=== PATIENT | female | born 1960 | race Caucasian/White ===

== ENCOUNTER → 2017-06-23 | Outpatient (CLI) | payer OTHER ==
[~2017-06-23] MED LIST: ASPI-1471 PO; ATEN-1 PO; CALC600T63 PO; CHOL400T29 PO; GLUC100026 PO; IBUP-1671 PO; METH5TAB87 PO; MULT1TAB64 PO; OMEG-55 PO; SIMV-54 PO
== END ==
LOC: LAB 09:27
PROVIDERS: ATTEND Internal Medicine Endocrinology, Diabetes & Metabolism
DX: E05.00 Thyrotoxicosis with diffuse goiter without thyrotoxic crisis or storm (principal)
CPT/HCPCS: 36415; 84439; 84443; 84481

== ENCOUNTER → 2017-06-23 | Outpatient (REF) ==
[2017-06-23 10:16] LABS: LDL CHOLESTEROL 137 mg/dl
== END ==
DX: Z02.9 Encounter for administrative examinations, unspecified (principal)

== ENCOUNTER → 2017-07-14 | Outpatient (CLI) | payer OTHER ==
[~2017-07-14] MED LIST changes: +ATEN-65 PO; +GOLYTE PO; +HYDR12.556 PO; +ROSU20TA13 PO
== END ==
LOC: LAB 16:07
PROVIDERS: ATTEND Emergency Medicine
DX: E05.00 Thyrotoxicosis with diffuse goiter without thyrotoxic crisis or storm (principal)
CPT/HCPCS: 36415; 84445

== ENCOUNTER → 2017-08-11 | Outpatient (CLI) | payer OTHER ==
[~2017-08-11] MED LIST changes: +ROSU40TA10 PO; +SELE200T32 PO
== END ==
LOC: LAB 09:04
PROVIDERS: ATTEND Emergency Medicine
DX: E78.5 Hyperlipidemia, unspecified (principal)
CPT/HCPCS: 36415; 82465; 83718; 84478

== ENCOUNTER 2017-08-18 00:22 | Day surgery (SDC) | payer OTHER ==
[2017-08-18] VITALS (7 sets, daily range): BP systolic 85–136; BP diastolic 47–73
[~2017-08-18] VITALS: Ht 167.6 cm; Wt 58.5 kg
[2017-08-18] MEDS ORDERED: LIDOCAINE/SOD BICARB 8.4% SYR ID ONE (07:00)
[2017-08-18] MEDS ORDERED: MIDAZOLAM 2 MG/2 ML VIAL IVP ONE (07:00)
[2017-08-18] MEDS ORDERED: NORMOSOL R SOLN(*) 1000 ML BAG 1,000 ML IV PRN (07:00)
[2017-08-18] MEDS ORDERED: PROPOFOL EMUL(*) 10MG/ML 20 ML 40 ML ONE (07:53)
--- NOTE | 2017-08-18 08:59 | Short(Outpt) Discharge Summary ---
Discharge Summary Reason for Hosp/Final Diag: (1) Colon cancer screening Status: Chronic Hospital Course & Plan: Colonoscopy completed without any problems. Departure Discharge to: Home, Self Care Discharge Instructions Home Meds Active Scripts Rosuvastatin Calcium (Rosuvastatin Calcium) 40 Mg Tablet, 1 TAB PO DAILY, #90 TAB 3 Refills Prov:WANDA CRAIG MD 08/17/17 Peg/Electrolytes (GOLYTELY SOLUTION) 4,000 Ml Soln, 1 GAL PO ONCE, #1 GAL 0 Refills Prov:DELONTE NOVAK MD 07/14/17 Hydrochlorothiazide (HYDROCHLOROTHIAZIDE) 12.5 Mg Capsule, 1 TAB PO DAILY, #90 CAPSULE 3 Refills Prov:WANDA CRAIG MD 07/01/17 Atenolol (ATENOLOL) 25 Mg Tablet, 1 TAB PO QDAY, #90 TAB 3 Refills Prov:WANDA CRAIG MD 07/01/17 Reported Medications Selenomethionine (SELENIUM) 200 Mcg Tablet, 200 MCG PO QDAY 08/12/17 Methimazole (METHIMAZOLE) 5 Mg Tablet, 5 MG PO DAILY 07/01/17 Ibuprofen (MOTRIN IB) 200 Mg Tablet, 1-2 TAB PO Q6-8H Y for PAIN 05/22/16 Glucosamine Sulfate 2KCL (GLUCOSAMINE) 1,000 Mg Tablet, 1 TAB PO 3XW 05/22/16 [place]-3S/Dha/Epa/Fish Oil (Fish Oil EC 1,200 mg Softgel) 1 Each Capsule.dr, 1 CAP PO 3XW 05/22/16 Cholecalciferol (Vitamin D3) (VITAMIN D3) 400 Unit Tablet, 2 TAB PO DAILY 05/22/16 Calcium Carbonate (CALCIUM) 600 Mg Tablet, 1 TAB PO DAILY 05/22/16 Discontinued Scripts Rosuvastatin Calcium (Rosuvastatin Calcium) 20 Mg Tablet, 1 TAB PO DAILY, #90 TAB 3 Refills Prov:WANDA CRAIG MD 07/01/17 Diet: Regular Activity: As Tolerated Special Instructions: Your colonoscopy was completed without any problems and your prep was excellent (Good Job!!). I didn't find any polyps, cancers, inflammation, or any other abnormalities. It was completely normal!! I recommend that you have another colonoscopy in 10 years. DELONTE NOVAK MD Aug 18, 2017 08:59
== END 2017-08-18 09:46 | disposition home or self-care (01) ==
LOC: OR 00:22
PROVIDERS: ATTEND Surgery
DX: Z12.11 Encounter for screening for malignant neoplasm of colon (principal)
CPT/HCPCS: 00812; 45378; J2704

== ENCOUNTER → 2017-09-14 | Outpatient (CLI) | payer OTHER | LOC: LAB 08:46 | PROVIDERS: ATTEND Emergency Medicine | DX: E78.5 Hyperlipidemia, unspecified (principal); E05.90 Thyrotoxicosis, unspecified without thyrotoxic crisis or storm | CPT/HCPCS: 36415; 82306; 82465; 83718; 84478 ==

== ENCOUNTER → 2017-09-14 | Outpatient (CLI) | payer OTHER | LOC: LAB 08:47 | PROVIDERS: ATTEND Internal Medicine Endocrinology, Diabetes & Metabolism | DX: E05.00 Thyrotoxicosis with diffuse goiter without thyrotoxic crisis or storm (principal); I51.2 Rupture of papillary muscle, not elsewhere classified | CPT/HCPCS: 82310; 82374; 82435; 82565; 82947; 83519; 84132; 84295; 84439; 84443; 84481; 84520 ==

== ENCOUNTER → 2017-11-02 | Outpatient (CLI) | payer OTHER | LOC: LAB 10:19 | PROVIDERS: ATTEND Internal Medicine Endocrinology, Diabetes & Metabolism | DX: E05.00 Thyrotoxicosis with diffuse goiter without thyrotoxic crisis or storm (principal) | CPT/HCPCS: 36415; 84439; 84443; 84481 ==

== ENCOUNTER → 2017-12-19 | Outpatient (CLI) | payer OTHER | LOC: LAB 10:41 | PROVIDERS: ATTEND Ophthalmology | DX: H02.536 Eyelid retraction left eye, unspecified eyelid (principal) | CPT/HCPCS: 36415; 84445 ==

== ENCOUNTER → 2018-01-25 | Outpatient (CLI) | payer OTHER ==
[~2018-01-25] MED LIST changes: -ROSU20TA13 PO; +ROSU20TA5 PO; -ROSU40TA10 PO; +ROSU40TA2 PO
== END ==
LOC: LAB 09:03
PROVIDERS: ATTEND Internal Medicine Endocrinology, Diabetes & Metabolism
DX: E05.00 Thyrotoxicosis with diffuse goiter without thyrotoxic crisis or storm (principal)
CPT/HCPCS: 36415; 84439; 84443; 84481

== ENCOUNTER → 2018-01-25 | Outpatient (CLI) | payer OTHER | LOC: LAB 09:42 | PROVIDERS: ATTEND Emergency Medicine | DX: E05.90 Thyrotoxicosis, unspecified without thyrotoxic crisis or storm (principal) | CPT/HCPCS: 82306 ==

== ENCOUNTER → 2018-02-10 | Outpatient (CLI) | payer OTHER | LOC: LAB 11:43 | PROVIDERS: ATTEND Internal Medicine Endocrinology, Diabetes & Metabolism | DX: E05.00 Thyrotoxicosis with diffuse goiter without thyrotoxic crisis or storm (principal) | CPT/HCPCS: 36415; 83519 ==

== ENCOUNTER 2018-02-28 01:16 | Outpatient (RCR) | payer OTHER ==
--- NOTE | 2018-03-01 09:25 | RADIOLOGY IMAGING REPORT ---
FACILITY: [facility] PATIENT NAME: Gema Garduno : 1960 MR: [id number] V: [id number] EXAM DATE: ORDERING PHYSICIAN: DORIS SALTER TECHNOLOGIST: Location: [facility] [place] Patient: Gema Garduno : 1960 Visit/Account:[id number] Date of Sevice: 02/28/2018 THYROID UPTAKE MUTILPLE HISTORY: Graves' disease TECHNIQUE: 368 microcuries I-123 were administered orally. Radioiodine uptake values were calculated at 24 hours following tracer administration. Gamma camera images were obtained of the neck in variou s orientations. COMPARISON: June 29, 2016 FINDINGS: Thyroid radioiodine uptake at 24 hours is 43.3% (normal range 15-40 %). Thyroid radioiodine uptake at six hours is 27.4% (normal range 5-15%) Size and shape: Normal. Homogeneity: Normal. Nodules: None evident. IMPRESSION: Abnormally high 24 hour thyroid uptake of 43.3% Abnormally high six hour thyroid uptake of 27.4% Report Dictated By: Sarah Light MD at 03/01/2018 9:18 AM Report E-Signed By: Sarah Light MD at 03/01/2018 9:21 AM WSN:[email or web address]
== END 2018-02-28 18:00 | disposition home or self-care (01) ==
LOC: NUC 01:16 → EDSTATUS 15:10 → NUC 18:00
PROVIDERS: ATTEND Internal Medicine Endocrinology, Diabetes & Metabolism
DX: E05.00 Thyrotoxicosis with diffuse goiter without thyrotoxic crisis or storm (principal)
CPT/HCPCS: 78012; A9516

== ENCOUNTER → 2018-04-01 | Outpatient (CLI) | payer OTHER | LOC: LAB 09:34 | PROVIDERS: ATTEND Internal Medicine Endocrinology, Diabetes & Metabolism | DX: E05.00 Thyrotoxicosis with diffuse goiter without thyrotoxic crisis or storm (principal) | CPT/HCPCS: 36415; 84439; 84443; 84481 ==

== ENCOUNTER → 2018-04-26 | Outpatient (CLI) | payer OTHER ==
--- NOTE | 2018-04-26 12:21 | RADIOLOGY IMAGING REPORT ---
FACILITY: [facility] PATIENT NAME: NIK WASHINGTON : [id number] MR: [id number] V: [id number] EXAM DATE: ORDERING PHYSICIAN: WANDA CRAIG TECHNOLOGIST: Kika Mao PROCEDURE:BILATERAL DIGITAL SCREENING MAMMOGRAM WITH CAD ASSISTED INTERPRETATION & 3D TOMOSYNTHESIS COMPARISON:Prior mammograms 04/07/2017, 03/17/2016, 02/26/2015. INDICATIONS:SCREENING FINDINGS: The breast tissue demonstrates scattered fibroglandular densities. A benign lymph node in the lateral Right breast is stable from numerous prior studies. There is no dominant mass, suspicious cluster of microcalcifications or persistent areas of architectural distortion. DIAGNOSTIC CATEGORY 1--NEGATIVE. RECOMMENDATIONS: ROUTINE MAMMOGRAM AND CLINICAL EVALUATION IN 1 YR. IMPRESSION: BIRADS 1: Negative. Dictated by: Rakesh Andrade M.D. on 04/26/2018 at 9:47 Transcribed by: SHANICE on 04/26/2018 at 10:02 Approved by: Rakesh Andrade M.D. on 04/26/2018 at 12:20 [facility]
== END ==
LOC: MAMO 00:59
PROVIDERS: ATTEND Emergency Medicine
DX: Z12.31 Encounter for screening mammogram for malignant neoplasm of breast (principal)
CPT/HCPCS: 77063; 77067

== ENCOUNTER → 2018-05-17 | Outpatient (CLI) | payer OTHER | LOC: LAB 11:33 | PROVIDERS: ATTEND Internal Medicine Endocrinology, Diabetes & Metabolism | DX: E05.00 Thyrotoxicosis with diffuse goiter without thyrotoxic crisis or storm (principal) | CPT/HCPCS: 36415; 83519; 84439; 84443; 84481 ==

== ENCOUNTER → 2018-05-17 | Outpatient (CLI) | payer OTHER | LOC: LAB 11:34 | PROVIDERS: ATTEND Ophthalmology | DX: H05.243 Constant exophthalmos, bilateral (principal) | CPT/HCPCS: 84445 ==

== ENCOUNTER → 2018-08-11 | Outpatient (CLI) | payer OTHER | LOC: LAB 08:43 | PROVIDERS: ATTEND Internal Medicine Endocrinology, Diabetes & Metabolism | DX: E05.00 Thyrotoxicosis with diffuse goiter without thyrotoxic crisis or storm (principal) | CPT/HCPCS: 36415; 84439; 84443; 84481 ==

== ENCOUNTER → 2018-09-19 | Outpatient (CLI) | payer OTHER | LOC: LAB 09:31 | PROVIDERS: ATTEND Internal Medicine Endocrinology, Diabetes & Metabolism | DX: E05.00 Thyrotoxicosis with diffuse goiter without thyrotoxic crisis or storm (principal) | CPT/HCPCS: 36415; 83519; 84439; 84443; 84481 ==

== ENCOUNTER → 2018-09-19 | Outpatient (REF) ==
[2018-09-19 10:55] LABS: LDL CHOLESTEROL 102 mg/dl
== END ==
DX: Z02.9 Encounter for administrative examinations, unspecified (principal)

== ENCOUNTER → 2018-11-23 | Outpatient (CLI) | payer OTHER | LOC: LAB 07:31 | PROVIDERS: ATTEND Internal Medicine Endocrinology, Diabetes & Metabolism | DX: E05.00 Thyrotoxicosis with diffuse goiter without thyrotoxic crisis or storm (principal) | CPT/HCPCS: 36415; 84439; 84443; 84481 ==

== ENCOUNTER → 2018-11-23 | Outpatient (CLI) | payer OTHER | LOC: LAB 07:34 | PROVIDERS: ATTEND Ophthalmology | DX: H02.532 Eyelid retraction right lower eyelid (principal) | CPT/HCPCS: 84445 ==